=== PATIENT | female | born 1990 | race American Indian/Alaskan Native ===

== ENCOUNTER 2021-09-18 23:58 | Outpatient (CLI) | payer MEDICAID ==
[2021-09-19] MEDS ORDERED: ACETAMINOPHEN 500 MG TAB PO ONE (01:45)
[2021-09-19 02:15] LABS: Basophils % (Auto) 0.3 % (0.0-1.8); Eosinophils % (Auto) 0.3 % (0.0-4.3); Hematocrit 33.6 % (30.3-42.9); Lymphocytes % (Auto) 20.2 % (13.4-35.0); Mean Corpuscular HGB Conc 33 % (30-34); Mean Corpuscular Volume 83 fl (79-97); Monocytes # (Auto) 0.5 K/mm3 (0.0-0.8); Platelet Count 210 K/mm3 (140-440); Red Blood Count 4.04 M/mm3 (3.65-5.03); Red Cell Distribution Width 14.2 % (13.2-15.2)
[2021-09-19 02:19] LABS: Bacteria,Urine 1+ /HPF (Negative); Bilirubin,Urine NEG (Negative); Blood,Urine NEG (Negative); Color,Urine Yellow (Yellow); Mucus,Urine 2+ /HPF
[2021-09-19 02:30] LABS: Alanine Aminotransferase 16 units/L (7-56); Albumin 3.3 g/dL (3.9-5); Blood Urea Nitrogen 7 mg/dL (7-17); Calcium 8.3 mg/dL (8.4-10.2); Hemolysis Index 2
[2021-09-19 02:31] LABS: BUN/Creatinine Ratio 10
--- NOTE | 2021-09-19 03:35 | Ultrasound Report ---
ULTRASOUND OBSTETRIC Indication: Pelvic pain: Approx. 19 weeks gestation Findings: There is a single intrauterine . BPD = 4.8 cm = 20 weeks, 4 day(s). Head circumference = 18.5 cm = 20 weeks, 6 day(s). Abdominal circumference = 14.3 cm = 19 weeks, 5 day(s). Femur length = 3.4 cm = 20 weeks, 5 day(s). Overall estimated sonographic age = 20 weeks, 3 day(s). heart rate is 143 beats per minute. Estimated weight is 339 grams position is cephalic. Cervix appears closed. movement is present. Placenta is posterior-fundal and grade 1 . Amniotic fluid volume appears normal. Maternal adnexa appear normal. Impression: 1. Single living intrauterine with estimated sonographic age of 20 weeks, 3 day(s). 2. No sonographic abnormality identified. Signer Name: Alden Patel MD Signed: 09/19/2021 3:30 AM Workstation Name: [id number]
--- NOTE | 2021-09-19 04:02 | Emergency Department Report ---
<KRAIGLOGANChristopherGAETANO - Last Filed: 09/19/21 03:56> ED Abdominal Pain HPI - General Chief Complaint: Abdominal Pain Stated Complaint: 20 WKS /PELVIC PAIN Source: patient Mode of arrival: Wheelchair Limitations: No Limitations - History of Present Illness Initial Comments: Patient is a A1 30-year-old -K[place] female who is approximately 19 to 20 weeks gestation presented to the ED with acute onset persistent lower abdominal pain for the last 1 week, worse in the last 2 days. Patient states that the pain is cramping and persistent and worse with movement. Patient states that she has not taken any medications for the pain. Patient denies vaginal bleeding, vaginal discharge, dysuria, urinary frequency and urgency, low back pain, fever, chills, cough, nausea and vomiting or diarrhea. MD Complaint: abdominal pain (Lower abdominal pain, approx. 20 weekss ago) -: Sudden, days(s) (1 week) Location: suprapubic Radiation: suprapubic Migration to: no migration Severity: severe Severity scale (0 -10): 7 Quality: cramping, aching, sharp Consistency: constant Improves With: nothing Worsens With: nothing Associated Symptoms: denies other symptoms, anorexia. denies: nausea, vomiting, diarrhea, fever, chills, constipation, hematemesis, hematochezia, melena, syncope - Related Data Previous Rx's Medication Instructions Recorded Last Taken Type Acetaminophen/Codeine [Tylenol #3] 1 tab PO Q6H PRN #20 tab 01/01/16 Unknown Rx Ibuprofen [Motrin] 600 mg PO Q8H PRN #50 tablet 01/01/16 Unknown Rx Acetaminophen [Tylenol] 500 mg PO Q6HR PRN #40 tablet 09/19/21 Unknown Rx Allergies Allergy/AdvReac Type Severity Reaction Status Date / Time orange juice Allergy Hives Verified 01/01/16 11:10 ED Review of Systems Constitutional: denies: chills, fever Eyes: denies: eye pain, eye discharge, vision change ENT: denies: ear pain, throat pain Respiratory: denies: cough, shortness of breath, wheezing Cardiovascular: denies: chest pain, palpitations Endocrine: no symptoms reported Gastrointestinal: abdominal pain (suprapubic). denies: nausea, vomiting, diarrhea, constipation, hematemesis Genitourinary: denies: urgency, dysuria, discharge Musculoskeletal: denies: back pain, joint swelling, arthralgia Skin: denies: rash, lesions Neurological: denies: headache, weakness, paresthesias Psychiatric: denies: anxiety, depression Hematological/Lymphatic: denies: easy bleeding, easy bruising ED Past Medical Hx - Past Medical History Previous Medical History?: No - Surgical History Past Surgical History?: No - Social History Smoking Status: Light Tobacco Smoker Substance Use Type: Alcohol - Medications Home Medications: Home Medications Medication Instructions Recorded Confirmed Last Taken Type Acetaminophen/Codeine [Tylenol #3] 1 tab PO Q6H PRN #20 tab 01/01/16 Unknown Rx Ibuprofen [Motrin] 600 mg PO Q8H PRN #50 tablet 01/01/16 Unknown Rx Acetaminophen [Tylenol] 500 mg PO Q6HR PRN #40 tablet 09/19/21 Unknown Rx ED Physical Exam - General Limitations: No Limitations General appearance: alert, in no apparent distress - Head Head exam: Present: atraumatic, normocephalic, normal inspection - Eye Eye exam: Present: normal appearance, PERRL, EOMI Pupils: Present: normal accommodation - ENT ENT exam: Present: normal exam, normal orophraynx, mucous membranes moist, TM's normal bilaterally, normal external ear exam - Neck Neck exam: Present: normal inspection, full ROM. Absent: tenderness - Respiratory Respiratory exam: Present: normal lung sounds bilaterally. Absent: respiratory distress, wheezes, rales, stridor, chest wall tenderness, accessory muscle use, prolonged expiratory - Cardiovascular Cardiovascular Exam: Present: regular rate, normal rhythm, normal heart sounds. Absent: systolic murmur, diastolic murmur, rubs, gallop - GI/Abdominal GI/Abdominal exam: Present: soft, tenderness (palpable suprapubic tenderness), normal bowel sounds. Absent: guarding, rebound, hyperactive bowel sounds, hypoactive bowel sounds, organomegaly - Extremities Exam Extremities exam: Present: normal inspection, full ROM, normal capillary refill. Absent: tenderness - Back Exam Back exam: Present: normal inspection, full ROM. Absent: tenderness, CVA tenderness (R), CVA tenderness (L), muscle spasm, paraspinal tenderness, vertebral tenderness - Neurological Exam Neurological exam: Present: alert, oriented X3, CN II-XII intact, normal gait, reflexes normal - Psychiatric Psychiatric exam: Present: normal affect, normal mood - Skin Skin exam: Present: warm, dry, intact, normal color. Absent: rash ED Medical Decision Making - Lab Data Result diagrams: 09/19/21 01:59 09/19/21 01:59 - Radiology Data Radiology results: report reviewed, image reviewed [facility] [address] [place] [address] Ultrasound Report Signed Patient: GUERO MILLER MR# : [id number] : 1990 Acct:[id number] Age/Sex: 30 / F ADM Date: 09/18/21 Loc: ED Attending Dr: Ordering Physician: MARNIE PATIÑO Date of Service: 09/19/21 Procedure(s): US OB >= 14 weeks Fetus Accession Number(s): [id number] cc: MARNIE PATIÑO ULTRASOUND OBSTETRIC Indication: Pelvic pain: Approx. 19 weeks gestation Findings: There is a single intrauterine . BPD = 4.8 cm = 20 weeks, 4 day(s). Head circumference = 18.5 cm = 20 weeks, 6 day(s). Abdominal circumference = 14.3 cm = 19 weeks, 5 day(s). Femur length = 3.4 cm = 20 weeks, 5 day(s). Overall estimated sonographic age = 20 weeks, 3 day(s). heart rate is 143 beats per minute. Estimated weight is 339 grams position is cephalic. Cervix appears closed. movement is present. Placenta is posterior-fundal and grade 1 . Amniotic fluid volume appears normal. Maternal adnexa appear normal. Impression: 1. Single living intrauterine with estimated sonographic age of 20 weeks, 3 day(s). 2. No sonographic abnormality identified. Signer Name: Alden Patel MD Signed: 09/19/2021 3:30 AM Workstation Name: [id number] Transcribed By: MARTINA Dictated By: Alden Patel MD Electronically Authenticated By: Alden Patel MD Signed Date/Time: 09/19/21329 DD/ 7 TD/TT: - Medical Decision Making This is a A1 30-year-old -[place] female who is approximately 19 to 20 weeks gestation presented to the ED with acute onset persistent lower abdominal pain for the last 1 week, worse in the last 2 days. Patient states that the pain is cramping and persistent and worse with movement. Patient states that she has not taken any medications for the pain. In the ED, patient is alert and oriented x3 and is not in any distress. Lab test results were reviewed and are all nonactionable. Patient was treated for pain with Tylenol. On reevaluation, patient's pain is well controlled medication. Pelvic ultrasound showed a single living intrauterine with estimated sonographic age of 20 weeks, 3 day(s) with a heart rate of 143 bpm. No other sonographic abnormality identified. Patient was therefore transferred to the labor and delivery for further evaluation. - Differential Diagnosis Currently, pain; UTI; ED Disposition Disposition: 01 HOME / SELF CARE / HOMELESS Is pt being admited?: No Does the pt Need Aspirin: No Condition: Stable Time of Disposition: 04:03 <ARMANDO GAMBOA - Last Filed: 09/21/21 21:19> ED Review of Systems ROS: Stated complaint: 20 WKS /PELVIC PAIN Other details as noted in HPI ED Course Vital Signs 09/19/21 09/19/21 09/19/21 01:05 05:54 05:55 Temperature 98.8 F 98.2 F Pulse Rate 78 60 63 Respiratory 16 16 Rate Blood Pressure 97/57 Blood Pressure 91/57 [Right] O2 Sat by Pulse 100 100 100 Oximetry 09/19/21 09/19/21 09/19/21 05:59 06:04 06:09 Temperature Pulse Rate 63 67 64 Respiratory Rate Blood Pressure Blood Pressure [Right] O2 Sat by Pulse 99 100 100 Oximetry 09/19/21 09/19/21 06:14 06:19 Temperature Pulse Rate 69 71 Respiratory Rate Blood Pressure Blood Pressure [Right] O2 Sat by Pulse 99 100 Oximetry ED Medical Decision Making - Lab Data Result diagrams: 09/19/21 01:59 09/19/21 01:59 I have reviewed the PA/DESIGN DRAFTSMAN's note and plan of care. I was available for consultation as needed at all times during the patient's visit in the emergency department but was not consulted on this case. I agree with the plan to return to the ER if the patient's symptoms worsen or do not improve. Critical care attestation.: If time is entered above; I have spent that time in minutes in the direct care of this critically ill patient, excluding procedure time.
[2021-09-19 05:56] VITALS: BP 97/57
== END 2021-09-19 06:28 | disposition home or self-care (01) ==
LOC: ED 23:58 → TRG 09-19 05:43 → LD 09-19 05:44 → TRG 09-19 06:28
PROVIDERS: ATTEND Obstetrics & Gynecology
DX: Z34.92 Encounter for supervision of normal pregnancy, unspecified, second trimester (principal); Z3A.20 20 weeks gestation of pregnancy
CPT/HCPCS: 36415; 59025; 76805; 80053; 81001; 84702; 85025